=== PATIENT | female | born 1960 | race Caucasian/White ===

== ENCOUNTER 2017-01-28 13:04 | Day surgery (SDC) | payer OTHER ==
[~2017-01-28] VITALS: Ht 170.2 cm; Wt 87.1 kg
[~2017-01-28 13:04] MED LIST: ASPIRIN CHEWABL81 M1 PO; ASPIRIN325 MG PO; CHOLESTYRAMINE P4 GM PO; Cipro PO; EXCEDRIN MIGRA1 EAC3 PO; HABITROL,NICODER7 MG TD; LIDODERM 5% P1 PATCH TD; LO-DOSE ASPIRIN81 M1 PO; NITROSTAT0.4 MG SL; OXYCODONE HCL10 MG PO; OxyCONTIN PO; PRILOSEC40 MG PO; PriLOSEC PO; VALIUM5 MG PO; XANAX0.5 MG PO; ZETIA10 MG PO; ZOLOFT100 MG PO
== END 2017-01-28 16:11 | disposition home or self-care (01) ==
LOC: CATH 13:04
DX: Z45.010 Encounter for checking and testing of cardiac pacemaker pulse generator [battery] (principal); I49.5 Sick sinus syndrome; I10 Essential (primary) hypertension; E78.5 Hyperlipidemia, unspecified; J45.909 Unspecified asthma, uncomplicated; I65.23 Occlusion and stenosis of bilateral carotid arteries; R42 Dizziness and giddiness; E11.8 Type 2 diabetes mellitus with unspecified complications; F17.210 Nicotine dependence, cigarettes, uncomplicated; Z82.49 Family history of ischemic heart disease and other diseases of the circulatory system
CPT/HCPCS: C1785; J0690; J1200; J2250; J3010; S0020